=== PATIENT | female | born 1980 | race Caucasian/White ===

== ENCOUNTER 2017-02-12 | Inpatient (IN) | payer MEDICAID ==
[~2017-02-12] VITALS: Ht 157.5 cm; Wt 73.7 kg
[2017-02-12 00:41] LABS: BASOPHIL % 0.6 % (0-2); PLATELET COUNT 189 x10^3mcL (130-400); RED CELL DISTRIBUTION WIDTH 13.3 % (11.5-14.5)
[2017-02-12 00:47] LABS: UA SPECIFIC GRAVITY >=1.030 (1.005-1.035); microscopic required? YES; urine erythrocyte 3+ (NEGATIVE)
[2017-02-12 00:54] LABS: CALCIUM 8.1 mg/dL (8.5-10.1); CARBON DIOXIDE 27.5 mmol/L (21-32); CHLORIDE SERUM 110 mmol/L (98-107); CREATININE SERUM 0.8 mg/dL (0.6-1.0); GFR1 > 60 mL/min; GLUCOSE SERUM 105 mg/dL (74-106); POTASSIUM SERUM 3.4 mmol/L (3.5-5.1); SODIUM SERUM 143 mmol/L (136-145)
[2017-02-12 00:58] LABS: ALBUMIN 3.5 g/dL (3.4-5.0); ALKALINE PHOSPHATASE 59 U/L (46-116); ALT/SGPT 25 U/L (14-59); AMYLASE 69 U/L (25-115); AST/SGOT 26 U/L (15-37); BILIRUBIN TOTAL 0.34 mg/dL (0.20-1.00); LIPASE 214 IU/L (73-393); TOTAL PROTEIN, SERUM 6.6 g/dL (6.4-8.2)
[2017-02-12 03:41] VITALS: BP 111/71
[2017-02-12 04:17] LABS: FREE T4 0.96 ng/dL (0.76-1.46); FREE THYROXINE INDEX 2.2 ug/dL (1.4-4.5); T4(THYROXINE) 6.5 ug/dL (4.7-13.3)
[2017-02-12 04:19] LABS: T3 TOTAL 1.05 ng/mL
[2017-02-12 04:29] LABS: MAGNESIUM 1.7 mg/dL (1.8-2.4); PHOSPHOROUS 4.8 mg/dL (2.5-4.9)
[2017-02-12 04:30] LABS: CHOLESTEROL/HDL RATIO 1.2
[2017-02-12 04:33] LABS: AMPHETAMINE QUAL UR NONE DETECTED (NEG <=1000)
[2017-02-12 05:54] VITALS: BP 98/60
[2017-02-12 06:05] LABS: BASOPHIL % 0.5 % (0-2); PLATELET COUNT 188 x10^3mcL (130-400); RED CELL DISTRIBUTION WIDTH 13.1 % (11.5-14.5)
[2017-02-12 06:27] LABS: CARBON DIOXIDE 24.4 mmol/L (21-32); CHLORIDE SERUM 110 mmol/L (98-107); CREATININE SERUM 0.6 mg/dL (0.6-1.0); GFR1 > 60 mL/min; GLUCOSE SERUM 110 mg/dL (74-106); POTASSIUM SERUM 4.2 mmol/L (3.5-5.1); SODIUM SERUM 141 mmol/L (136-145)
[2017-02-12 09:33] VITALS: BP 92/52
[2017-02-12 13:02] VITALS: BP 97/55
[2017-02-12 16:51] VITALS: BP 95/48
[2017-02-12 21:29] VITALS: BP 104/47
[2017-02-13 05:34] VITALS: BP 92/48
[2017-02-13 06:04] LABS: BASOPHIL % 0.5 % (0-2); PLATELET COUNT 198 x10^3mcL (130-400); RED CELL DISTRIBUTION WIDTH 13.9 % (11.5-14.5)
[2017-02-13 06:25] LABS: CALCIUM 7.8 mg/dL (8.5-10.1); CARBON DIOXIDE 25.7 mmol/L (21-32); CHLORIDE SERUM 110 mmol/L (98-107); CREATININE SERUM 0.6 mg/dL (0.6-1.0); GFR1 > 60 mL/min; GLUCOSE SERUM 96 mg/dL (74-106); MAGNESIUM 1.9 mg/dL (1.8-2.4); PHOSPHOROUS 2.4 mg/dL (2.5-4.9); POTASSIUM SERUM 4.3 mmol/L (3.5-5.1); SODIUM SERUM 143 mmol/L (136-145)
[2017-02-13 09:15] VITALS: BP 107/54
[2017-02-13 13:25] VITALS: BP 97/61
[2017-02-13] MEDS ORDERED: BIA500 PO (13:43)
[2017-02-13] MEDS ORDERED: AMO500 PO (13:44)
[2017-02-13] MEDS ORDERED: PRI20 PO (13:45)
[2017-02-13 14:52] VITALS: BP 97/61
[2017-02-13] MEDS ORDERED: BENTYL20 MG PO (15:06)
== END 2017-02-13 15:37 | disposition home or self-care (01) ==
LOC: ED → MU 02:47 → DU 02:47 → MU 02-13 12:44
PROVIDERS: Emergency Medicine; Internal Medicine; ADMIT Family Medicine
PROC: 0DB68ZX Excision of Stomach, Via Natural or Artificial Opening Endoscopic, Diagnostic (ICD-10-PCS; principal; 2017-02-13 10:00)
DX: K81.9 Cholecystitis, unspecified (principal); E83.42 Hypomagnesemia; K20.8 Other esophagitis; B96.81 Helicobacter pylori [H. pylori] as the cause of diseases classified elsewhere; E87.6 Hypokalemia; E83.51 Hypocalcemia; E83.39 Other disorders of phosphorus metabolism
CPT/HCPCS: 43235; 80307; 83880; 84439; J0295; J1200; J1610; J2250; J2310; J3010; J3475; J3490; J7030; Q0092; Q0162

== ENCOUNTER 2018-04-13 18:08 | Emergency (ER) | payer MEDICAID ==
[~2018-04-13] VITALS: Ht 165.1 cm; Wt 73.0 kg
[~2018-04-13 18:08] MED LIST: AMO500 PO; BENTYL20 MG PO; BIA500 PO; PRI20 PO
[2018-04-13 18:21] VITALS: Ht 165.1 cm; Wt 73.0 kg
[2018-04-13 20:20] VITALS: BP 144/61
== END 2018-04-13 20:20 | disposition home or self-care (01) ==
LOC: ED 18:08
DX: S39.012A Strain of muscle, fascia and tendon of lower back, initial encounter (principal); R51 Headache; V44.5XXA Car driver injured in collision with heavy transport vehicle or bus in traffic accident, initial encounter; Y92.410 Unspecified street and highway as the place of occurrence of the external cause

== ENCOUNTER 2018-08-26 11:27 | Emergency (ER) | payer MEDICAID ==
[~2018-08-26] VITALS: Ht 157.5 cm; Wt 73.5 kg
[2018-08-26 11:48] VITALS: BP 109/71; Ht 157.5 cm; Wt 73.5 kg
== END 2018-08-26 13:42 | disposition home or self-care (01) ==
LOC: ED 11:27
DX: J06.9 Acute upper respiratory infection, unspecified (principal); Z98.51 Tubal ligation status

== ENCOUNTER 2018-11-28 08:57 | Emergency (ER) | payer MEDICAID ==
[~2018-11-28] VITALS: Ht 165.1 cm; Wt 72.1 kg
[2018-11-28 09:43] VITALS: BP 113/69; Ht 165.1 cm; Wt 72.1 kg
== END 2018-11-28 10:46 | disposition home or self-care (01) ==
LOC: ED 08:57
DX: H66.91 Otitis media, unspecified, right ear (principal)

== ENCOUNTER 2019-03-21 21:06 | Emergency (ER) | payer MEDICAID ==
[~2019-03-21] VITALS: Ht 162.6 cm; Wt 73.9 kg
[2019-03-21 22:04] VITALS: BP 106/63; Ht 162.6 cm; Wt 73.9 kg
== END 2019-03-21 22:58 | disposition home or self-care (01) ==
LOC: ED 21:06
DX: N39.0 Urinary tract infection, site not specified (principal); N76.0 Acute vaginitis; Z98.51 Tubal ligation status

== ENCOUNTER 2019-04-05 11:20 | Emergency (ER) | payer MEDICAID ==
[~2019-04-05] VITALS: Ht 157.5 cm; Wt 72.6 kg
[2019-04-05 11:35] VITALS: BP 110/66; Ht 157.5 cm; Wt 72.6 kg
== END 2019-04-05 11:51 | disposition home or self-care (01) ==
LOC: ED 11:20
DX: L50.9 Urticaria, unspecified (principal); Z98.890 Other specified postprocedural states; Z98.51 Tubal ligation status

== ENCOUNTER 2019-04-06 05:41 | Emergency (ER) | payer MEDICAID ==
[~2019-04-06] VITALS: Ht 157.5 cm; Wt 73.0 kg
[2019-04-06 05:47] VITALS: Ht 157.5 cm; Wt 73.0 kg
[2019-04-06 08:53] VITALS: BP 111/51
== END 2019-04-06 08:53 | disposition home or self-care (01) ==
LOC: ED 05:41
DX: T78.40XA Allergy, unspecified, initial encounter (principal); Z98.51 Tubal ligation status; X58.XXXA Exposure to other specified factors, initial encounter
CPT/HCPCS: J0171; J1200; J2930

== ENCOUNTER 2019-04-12 06:29 | Emergency (ER) | payer MEDICAID ==
[~2019-04-12] VITALS: Ht 157.5 cm; Wt 70.8 kg
[2019-04-12 06:32] VITALS: Ht 157.5 cm; Wt 70.8 kg
[2019-04-12 07:32] VITALS: BP 110/71
== END 2019-04-12 07:33 | disposition home or self-care (01) ==
LOC: ED 06:29
DX: T78.40XA Allergy, unspecified, initial encounter (principal); R10.9 Unspecified abdominal pain; R11.10 Vomiting, unspecified; R19.7 Diarrhea, unspecified; Z98.890 Other specified postprocedural states; X58.XXXA Exposure to other specified factors, initial encounter
CPT/HCPCS: J1200; J2930